=== PATIENT | female | born 1995 | race Caucasian/White ===

== ENCOUNTER 2020-03-18 05:09 | Day surgery (SDC) | payer OTHER ==
[2020-03-16 13:05] VITALS: BMI 25.3
[2020-03-18 11:12] VITALS: TEMP 98
[2020-03-18 11:52] VITALS: BP 107/68; PULSE 69
--- NOTE | 2020-03-20 17:48 | PATH ---
Surgical Pathology Report Patient Name: COLTON BONILLA [facility]. Rec. #: [id number] /Age/Gender: 1995 (Age: 24) / F Account: [id number] Location: [facility]-ENDOSCOPY Taken: 03/18/2020 Received: 03/19/2020 Reported: 03/20/2020 Physicians: Liliana Connell M.D. Specimen(s) Received A: BX CECUM B: BX ASCENDING COLON #1 C: BX ASCENDING COLON #2 D: BX TRANSVERSE COLON #1 E: BX TRANVERSE COLON #2 F: BX DESCENDING COLON #1 G: BX DESCENDING COLON #2 H: BX SIGMOID COLON #1 I: BX SIGMOID COLON #2 J: BX RECTUM Clinical History Abdominal pain, blood in stool Postoperative diagnosis: Hemorrhoids, rule out colitis Final Diagnosis A. CECUM, BIOPSY: COLONIC MUCOSA WITH NO SIGNIFICANT PATHOLOGIC CHANGE. SEE COMMENT. B. ASCENDING COLON #1, BIOPSY: COLONIC MUCOSA WITH REACTIVE LYMPHOID AGGREGATE IN THE LAMINA PROPRIA. SEE COMMENT. C. ASCENDING COLON #2, BIOPSY: COLONIC MUCOSA WITH REACTIVE LYMPHOID AGGREGATE IN THE LAMINA PROPRIA. SEE COMMENT. D. TRANSVERSE COLON #1, BIOPSY: COLONIC MUCOSA WITH REACTIVE LYMPHOID AGGREGATE IN THE LAMINA PROPRIA. SEE COMMENT. E. TRANSVERSE COLON #2, BIOPSY: COLONIC MUCOSA WITH REACTIVE LYMPHOID AGGREGATE IN THE LAMINA PROPRIA. SEE COMMENT. F. DESCENDING COLON #1, BIOPSY: COLONIC MUCOSA WITH REACTIVE LYMPHOID AGGREGATE IN THE LAMINA PROPRIA. SEE COMMENT. G. DESCENDING COLON #2, BIOPSY: COLONIC MUCOSA WITH REACTIVE LYMPHOID AGGREGATE IN THE LAMINA PROPRIA. SEE COMMENT. H. SIGMOID COLON #1, BIOPSY: COLONIC MUCOSA WITH REACTIVE LYMPHOID AGGREGATE IN THE LAMINA PROPRIA. SEE COMMENT. I. SIGMOID COLON #2, BIOPSY: COLONIC MUCOSA WITH REACTIVE LYMPHOID AGGREGATE IN THE LAMINA PROPRIA. SEE COMMENT. J. RECTUM, BIOPSY: COLONIC MUCOSA WITH REACTIVE LYMPHOID AGGREGATE AND FOCAL HEMORRHAGE IN THE LAMINA PROPRIA. SEE COMMENT. Comment: No evidence of active colitis or microscopic colitis in the biopsy specimens. Electronically Signed Clemencia Ledezma M.D. Gross Description A. Received in formalin, labeled "biopsy cecum" are 2 vann, irregular portions of soft tissue averaging 0.3 cm. in greatest dimension. The specimens are submitted in toto in one cassette. B. Received in formalin, labeled "biopsy ascending colon #1" is a vann, irregular portion of soft tissue measuring 0.8 cm. in greatest dimension. The specimen is submitted in toto in one cassette. C. Received in formalin, labeled "biopsy ascending colon #2" are 2 vann, irregular portions of soft tissue averaging 0.3 cm. in greatest dimension. The specimens are submitted in toto in one cassette. D. Received in formalin, labeled "biopsy transverse colon #1" is a vann, irregular portion of soft tissue measuring 0.5 cm. in greatest dimension. The specimen is submitted in toto in one cassette. E. Received in formalin, labeled "biopsy transverse colon #2" is a vann, irregular portion of soft tissue measuring 0.2 cm. in greatest dimension. The specimen is submitted in toto in one cassette. F. Received in formalin, labeled "biopsy descending colon #1" is a vann, irregular portion of soft tissue measuring 0.3 cm. in greatest dimension. The specimen is submitted in toto in one cassette. G. Received in formalin, labeled "biopsy descending colon #2" are 2 vann, irregular portions of soft tissue measuring 0.3 and 0.5 cm. in greatest dimension. The specimens are submitted in toto in one cassette. H. Received in formalin, labeled "biopsy sigmoid colon #1" are 2 vann, irregular portions of soft tissue measuring 0.2 and 0.3 cm. in greatest dimension. The specimens are submitted in toto in one cassette. I. Received in formalin, labeled "biopsy sigmoid colon #2" are 2 vann, irregular portions of soft tissue averaging 0.3 cm. in greatest dimension. The specimens are submitted in toto in one cassette. J. Received in formalin, labeled "biopsy rectum" are 2 vann, irregular portions of soft tissue averaging 0.3 cm. in greatest dimension. The specimens are submitted in toto in one cassette. DL03/19/2020 saudi03/19/2020
== END 2020-03-18 11:55 | disposition home or self-care (01) ==
LOC: JASU-ENDO 05:09
PROVIDERS: ATTEND Internal Medicine Gastroenterology
PROC: 0DBL8ZX Excision of Transverse Colon, Via Natural or Artificial Opening Endoscopic, Diagnostic (ICD-10-PCS; 2020-03-18)
PROC: 0DBN8ZX Excision of Sigmoid Colon, Via Natural or Artificial Opening Endoscopic, Diagnostic (ICD-10-PCS; 2020-03-18)
PROC: 0DBP8ZX Excision of Rectum, Via Natural or Artificial Opening Endoscopic, Diagnostic (ICD-10-PCS; 2020-03-18)
PROC: 0DBM8ZX Excision of Descending Colon, Via Natural or Artificial Opening Endoscopic, Diagnostic (ICD-10-PCS; 2020-03-18)
PROC: 0DBH8ZX Excision of Cecum, Via Natural or Artificial Opening Endoscopic, Diagnostic (ICD-10-PCS; 2020-03-18)
PROC: 0DBK8ZX Excision of Ascending Colon, Via Natural or Artificial Opening Endoscopic, Diagnostic (ICD-10-PCS; principal; 2020-03-18 10:46)
DX: K63.89 Other specified diseases of intestine (principal); K64.1 Second degree hemorrhoids; R19.4 Change in bowel habit; R10.84 Generalized abdominal pain; Z87.19 Personal history of other diseases of the digestive system
CPT/HCPCS: 81025; 88305-TC

== ENCOUNTER 2021-08-26 04:25 | Day surgery (SDC) | payer OTHER ==
[2021-08-19 14:29] VITALS: BMI 28.1
[2021-08-26 09:01] VITALS: TEMP 97.8
[2021-08-26 10:52] VITALS: BP 110/64; PULSE 68
== END 2021-08-26 10:43 | disposition home or self-care (01) ==
LOC: JASU-ENDO 04:25
PROVIDERS: ATTEND Internal Medicine Gastroenterology
PROC: 0DBP8ZX Excision of Rectum, Via Natural or Artificial Opening Endoscopic, Diagnostic (ICD-10-PCS; principal; 2021-08-26 08:15)
DX: K51.20 Ulcerative (chronic) proctitis without complications (principal); K92.1 Melena; K64.8 Other hemorrhoids
CPT/HCPCS: 81025; 88305-TC

== ENCOUNTER 2021-10-20 11:06 | Day surgery (SDC) | payer OTHER ==
[2021-10-18 18:38] VITALS: BMI 28.9
[2021-10-20 12:54] VITALS: BP 112/67; PULSE 62; TEMP 97.8
== END 2021-10-20 13:16 | disposition home or self-care (01) ==
LOC: FASU-ENDO 11:06
PROVIDERS: ATTEND Internal Medicine Gastroenterology
PROC: 0DB68ZX Excision of Stomach, Via Natural or Artificial Opening Endoscopic, Diagnostic (ICD-10-PCS; 2021-10-20)
PROC: 0DB48ZX Excision of Esophagogastric Junction, Via Natural or Artificial Opening Endoscopic, Diagnostic (ICD-10-PCS; 2021-10-20)
PROC: 0DB98ZX Excision of Duodenum, Via Natural or Artificial Opening Endoscopic, Diagnostic (ICD-10-PCS; principal; 2021-10-20 12:25)
DX: K29.50 Unspecified chronic gastritis without bleeding (principal); K21.00 Gastro-esophageal reflux disease with esophagitis, without bleeding; R10.13 Epigastric pain
CPT/HCPCS: 81025; 88305-TC; 88342-TC